=== PATIENT | female | born 1975 | race Caucasian/White ===

== ENCOUNTER 2022-12-24 21:15 | Observation (INO) | payer BC ==
[2022-12-24] MEDS ORDERED: ONDANSETRON 4 MG/2 ML VIAL IVPB ONE (21:22)
[2022-12-24] MEDS ORDERED: SODIUM CHLORIDE 1,000 ML IV ONE (21:22)
[2022-12-24] MEDS ORDERED: ONDANSETRON 4 MG/2 ML VIAL ONE (21:27)
[2022-12-24 21:59] LABS: HEMATOCRIT 39.3 % (32.4-45.2); HEMOGLOBIN 13.8 G/dL (10.7-15.3); MCH 30.7 pg (25.7-33.7); MCHC 35.2 g/dl (32.0-36.0); MEAN CELL VOLUME 87.3 fl (80-96); MEAN PLT VOLUME 6.4 fl (7.5-11.1); PLATELET COUNT 152.7 10^3/uL (134-434); RDW 13.7 % (11.6-15.6); WHITE BLOOD COUNT 5.5 10^3/uL (4.0-10.8)
[2022-12-24 22:21] LABS: ALBUMIN 4.2 g/dl (3.4-5.0); BILIRUBIN,TOTAL 1.4 mg/dl (0.2-1); BLOOD UREA NITROGEN 13.5 mg/dl (7-18); CALCIUM 8.5 mg/dl (8.5-10.1); CREATININE 0.6 mg/dl (0.6-1.3); MAGNESIUM 1.9 mg/dL (1.8-2.4); PHOSPHOROUS 1.86 (2.5-4.9); SGOT/AST 70.3 U/L (15-37); SGPT/ALT 109.7 U/L (7-52); TOT PROT 6.5 g/dl (6.4-8.2)
[2022-12-24 22:23] LABS: POTASSIUM 2.9 mmol/L (3.5-5.1)
[2022-12-24] MEDS ORDERED: POTASSIUM CHLORIDE TABS 20 MEQ TABLET.ER (FP) PO ONE ×2 (22:33→22:34)
[2022-12-24] MEDS ORDERED: KCL 10 MEQ IVPB 10 MEQ/100 ML INFUS.BAG IVPB ONE (22:34)
[2022-12-24] MEDS ORDERED: NAPH,MB-DB/K PH,MBDB POWDER PACKET PO ONE (22:34)
[2022-12-24] MEDS ORDERED: KCL 10 MEQ IVPB 10 MEQ/100 ML INFUS.BAG IVPB SCH (22:45)
[2022-12-25 01:12] VITALS: BMI 31.0
[2022-12-25 03:40] LABS: PH,URINE 7.5 (5.0-8.0); URINE APPEARANCE CLEAR; URINE BILIRUBIN NEGATIVE (NEGATIVE); URINE COLOR YELLOW; URINE GLUCOSE (UA) NEGATIVE (NEGATIVE); URINE KETONE 1+ (NEGATIVE); URINE LEUK ESTERASE NEGATIVE (NEGATIVE); URINE NITRITE NEGATIVE (NEGATIVE); URINE PROTEIN NEGATIVE (NEGATIVE); URINE UROBILINOGEN 0.2 mg/dL (0.2-1.0)
[2022-12-25 08:48] LABS: HEMATOCRIT 38.2 % (32.4-45.2); MCH 29.9 pg (25.7-33.7); PLATELET COUNT 153.1 10^3/uL (134-434); RBC 4.34 10^6/uL (3.60-5.2); RDW 13.5 % (11.6-15.6); WHITE BLOOD COUNT 4.9 10^3/uL (4.0-10.8)
[2022-12-25 10:13] LABS: ALBUMIN 3.9 g/dl (3.4-5.0); BILIRUBIN,TOTAL 1.4 mg/dl (0.2-1); BLOOD UREA NITROGEN 9.4 mg/dl (7-18); CALCIUM 8.2 mg/dl (8.5-10.1); CREATININE 0.7 mg/dl (0.6-1.3); POTASSIUM 3.5 mmol/L (3.5-5.1); SGOT/AST 66.2 U/L (15-37); SGPT/ALT 114.8 U/L (7-52); TOT PROT 5.9 g/dl (6.4-8.2)
[2022-12-25] MEDS ORDERED: LACTATED RINGERS SOLUTION 1,000 ML/1,000 ML INFUS.BAG IV STA (10:29)
[2022-12-25 10:34] LABS: PLATELET ESTIMATE ADEQUATE
[2022-12-25] MEDS: SODIUM CHLORIDE 1,000 ML IV SCH (12:09)
[2022-12-25 18:22] VITALS: RESP 17
[2022-12-25] MEDS ORDERED: diphenhydrAMINE HCL 25 MG CAPSULE (FP) PO ONE (21:51)
[2022-12-26 06:25] VITALS: PULSE 72; TEMP 97.8
[2022-12-26 10:31] VITALS: BP 145/96
[2022-12-26] MEDS: SODIUM CHLORIDE 1,000 ML IV SCH (14:19)
== END 2022-12-26 12:45 | disposition left against medical advice (07) ==
LOC: FER 21:15 → FM/S 23:43
PROVIDERS: ADMIT Internal Medicine
PROC: 3E0337Z Introduction of Electrolytic and Water Balance Substance into Peripheral Vein, Percutaneous Approach (ICD-10-PCS; principal; 2022-12-24)
PROC: 3E033GC Introduction of Other Therapeutic Substance into Peripheral Vein, Percutaneous Approach (ICD-10-PCS; 2022-12-24)
DX: K76.89 Other specified diseases of liver (principal); E80.6 Other disorders of bilirubin metabolism; R11.2 Nausea with vomiting, unspecified; R19.7 Diarrhea, unspecified
CPT/HCPCS: 36415; 71045-TC-FY; 76700-TC; 80053; 81003; 83735; 84100; 85027; 86704; 86705; 86708; 86709; 86803; 87340; 93005; 99285-25; G0378